=== PATIENT | female | born 1990 | race Caucasian/White ===

== ENCOUNTER 2019-01-14 09:25 | Outpatient (CLI) | payer OTHER | END 2019-01-14 09:30 | disposition home or self-care (01) | LOC: EKG 09:25 | DX: R00.2 Palpitations (principal) ==

== ENCOUNTER 2019-04-14 10:36 | Outpatient (CLI) | payer OTHER | END 2019-04-14 10:50 | disposition home or self-care (01) | LOC: EKG 10:36 | DX: R00.2 Palpitations (principal); Z13.6 Encounter for screening for cardiovascular disorders ==